=== PATIENT | male | born 1955 ===

== ENCOUNTER 2022-12-20 09:58 | Day surgery (SDC) | payer BC, MEDICARE ==
[~2022-12-20 09:58] MED LIST: EPINEPHrine 1 MG/ML 30 ML MDV IRR SCH; Lactated Ringers 1,000 ML IV SCH; Sodium Chloride 0.9% 10 ML Syringe FLUSH PRN; Sodium Chloride 0.9% 10 ML Syringe FLUSH SCH
[2022-12-20] MEDS ORDERED: Propofol 200 MG/20 ML SDV ONE (10:30)
[2022-12-20] MEDS ORDERED: Lidocaine 1% 2 ML ONE (10:30)
[2022-12-20] MEDS ORDERED: Ondansetron 4 MG/2 ML SDV ONE (10:30)
[2022-12-20] MEDS ORDERED: ceFAZolin 2 GM Vial ONE (10:31)
[2022-12-20] MEDS ORDERED: fentaNYL 100 MCG/2 ML SDV ONE (10:31)
[2022-12-20] MEDS ORDERED: HYDROmorphone 0.5 MG/0.5 ML Syringe IVPUSH PRN (10:36)
[2022-12-20] MEDS ORDERED: fentaNYL 100 MCG/2 ML SDV IVPUSH PRN (10:36)
[2022-12-20] MEDS ORDERED: Ondansetron 4 MG/2 ML SDV IVPUSH PRN (10:36)
[2022-12-20] MEDS ORDERED: Bupivacaine 0.25% 10 ML SDV ONE (10:53)
[2022-12-20] MEDS ORDERED: Acetaminophen/HYDROcodone 325-5 MG Tab PO SCH (12:58)
[2022-12-20] MEDS ORDERED: Ketorolac 30 MG/ML SDV IVPUSH ONE (14:00)
== END 2022-12-20 14:25 | disposition home or self-care (01) ==
LOC: JD.SDS 09:58
PROVIDERS: ATTEND Orthopaedic Surgery
DX: S83.242A Other tear of medial meniscus, current injury, left knee, initial encounter (principal); M71.22 Synovial cyst of popliteal space [Baker], left knee; M22.42 Chondromalacia patellae, left knee; G89.29 Other chronic pain; R73.03 Prediabetes; I49.9 Cardiac arrhythmia, unspecified; K21.9 Gastro-esophageal reflux disease without esophagitis; I10 Essential (primary) hypertension; M25.529 Pain in unspecified elbow; Z87.891 Personal history of nicotine dependence; Z79.84 Long term (current) use of oral hypoglycemic drugs; Z79.1 Long term (current) use of non-steroidal anti-inflammatories (NSAID); Z79.899 Other long term (current) drug therapy
CPT/HCPCS: 29881; 82947; J0171; J0690; J2405; J2704; J3010; J3490; J7120; 01400